=== PATIENT | female | born 1990 | race Caucasian/White ===

== ENCOUNTER 2017-02-01 20:04 | Emergency (ER) | payer OTHER ==
[~2017-02-01] VITALS: Ht 165.1 cm; Wt 89.7 kg
[2017-02-01 20:54] LABS: HEMATOCRIT 37.2 % (34.6-47.8); HEMOGLOBIN 12.7 g/dL (11.7-16.4); WHITE BLOOD COUNT 15.6 x10^3/uL (3.4-10)
[2017-02-01 21:05] LABS: BLOOD UREA NITROGEN 7 mg/dL (7-18)
[2017-02-01 23:02] VITALS: BP 138/76
== END 2017-02-01 23:53 | disposition home or self-care (01) ==
LOC: ED 23:09
DX: O26.892 Other specified pregnancy related conditions, second trimester (principal); R10.2 Pelvic and perineal pain; G89.29 Other chronic pain; D72.829 Elevated white blood cell count, unspecified; O16.2 Unspecified maternal hypertension, second trimester; Z3A.18 18 weeks gestation of pregnancy
CPT/HCPCS: 36415; 76805; 80048; 81001; 82040; 85025; 87086; 99285